=== PATIENT | female | born 2000 | race Caucasian/White ===

== ENCOUNTER 2023-06-18 13:29 | Emergency (ER) | payer BC ==
[~2023-06-18] VITALS: Ht 177.8 cm; Wt 72.6 kg
[2023-06-18 13:29] VITALS: BP 140/76; PULSE 88; RESP 16; RESP 18; TEMP 98.5; O2SAT 97
[2023-06-18 13:46] VITALS: BP 140/76; PULSE 88; RESP 18; TEMP 98.5; O2SAT 97
[2023-06-18 13:47] LABS: BASOPHIL % 0.6 % (0.0-0.2); EOSINOPHIL # 0.1 10^3/uL (0.0-0.2); EOSINOPHIL % 1.8 % (0.0-5.0); HEMATOCRIT(ML) 46.7 % (37.0-53.0); HEMOGLOBIN 16.1 g/dL (13.9-16.3); LYMPHOCYTES # 2.01 10^3/uL1 (1.0-4.8); MEAN CORP HGB 32.3 pg (26-34); MEAN CORP HGB CONCENTRATION 34.5 g/dL (33-36.5); MEAN CORP VOLUME 93.6 fL (78-100); MONOCYTES # 0.4 10^3/uL (0.3-0.8); MONOCYTES % 5.7 % (5.0-12.0); NEUTROPHIL # 4.6 10^3/uL (1.8-7.7); NEUTROPHILS % 63.9 % (41.0-85.0); PLATELET COUNT 298 10^3/uL (150-400); RED BLOOD CELL 4.99 10^6/uL (4.50-5.90); RED CELL DISTRIBUTION WIDTH 13.2 % (11.5-14.5); WHITE BLOOD CELL 7.2 10^3/uL (4.5-11.0)
[2023-06-18] MEDS: ASPIRIN PO PRN (13:47)
[2023-06-18] MEDS ORDERED: ASPIRIN ONE (13:47)
[2023-06-18 13:48] LABS: +ADD MANUAL DIFF(NO CHRG) NO
[2023-06-18 14:10] LABS: ALANINE AMINOTRANSFERASE(ML) 47 U/L (12-78); ALBUMIN(ML) 4.4 g/dL (3.4-5.0); ALBUMIN/GLOBULIN RATIO 1.128; ALKALINE PHOSPHATASE 90 U/L (50-136); ANION GAP 16.4; ASPARTATE AMINO TRANSFERASE 35 U/L (0-35); CALCIUM 10.1 mg/dL (8.4-10.5); CARBON DIOXIDE 23.3 mmol/L (20.0-32); CREATININE SERUM 1.15 mg/dL (0.59-1.40); EST GFR, NON-AA 59.6 (>/=60); GLUCOSE 116 mg/dL (74-106); POTASSIUM 3.7 mmol/L (3.6-5.2); SODIUM 139 mmol/L (132-145)
[2023-06-18 14:12] LABS: TROPONIN I HIGH SENSITIVITY < 4 ng/L (0-50)
[2023-06-18 14:16] VITALS: BP 121/74; PULSE 86; RESP 16; TEMP 98.5; O2SAT 97
[2023-06-18 14:34] VITALS: BP 111/67; PULSE 96; RESP 16; TEMP 98.5; O2SAT 97
[2023-06-18] MEDS ORDERED: ZOFRAN ODT ONE (14:36)
[2023-06-18] MEDS ORDERED: PEPCID ONE (14:37)
[2023-06-18] MEDS ORDERED: TORADOL ONE (14:37)
[2023-06-18] MEDS: TORADOL IM ONE (14:41)
[2023-06-18] MEDS: PEPCID PO STA (14:41)
[2023-06-18] MEDS: ZOFRAN ODT SL STA (14:41)
== END 2023-06-18 14:52 | disposition home or self-care (01) ==
LOC: ER 13:29
DX: R07.9 Chest pain, unspecified (principal); F31.9 Bipolar disorder, unspecified; F12.90 Cannabis use, unspecified, uncomplicated
CPT/HCPCS: 99284; 71045; 96372; 80053; 85025; 36415; 84484; 83690; 84703; 93005; J1885; J8499; 99285